=== PATIENT | male | born 1955 | race Caucasian/White ===

== ENCOUNTER → 2024-08-30 07:51 | Outpatient (BNVA) | payer MEDICARE, SELFPAY | PROVIDERS: PCP Family Medicine; Referring Provider Family Medicine; Visit Provider Podiatrist | DX: L60.0 Ingrowing nail (principal); M79.672 Pain in left foot; B35.1 Tinea unguium | CPT/HCPCS: 11720 ==

== ENCOUNTER 2024-11-29 14:01 | Emergency (ER) | payer MEDICARE, SELFPAY ==
[2024-11-29 14:04] VITALS: BP 136/76; PULSE 90; RESP 20; TEMP 37.3; O2SAT 98
[2024-11-29] MEDS: Acetaminophen 500 MG TAB 1000 MG PO (14:48)
[2024-11-29 14:52] VITALS: BP 136/76; PULSE 90; RESP 20; TEMP 37.3; O2SAT 98
[2024-11-29 14:53] VITALS: RESP 16
[2024-11-29 14:59] LABS: COVID-19 PCR Negative (Negative); RSV PCR Negative (Negative)
--- NOTE | 2024-11-29 17:40 | W.ED.GENAD ---
Discharge Plan Disposition Patient Disposition: Home Condition: Stable Discharge Details Clinical Impression: Fever, Acute viral syndrome Primary Care Provider: Hector Caruso ED Provider: Ilene Murray Home Meds and New Rx's Prescriptions: No Action sertraline 50 mg tablet 50 mg PO DAILY triamterene-hydrochlorothiazid 37.5-25 mg tablet 0.5 tab PO DAILY ketoconazole 2 % cream See Rx Instructions topical DAILY Qty: 30 11RF Rx Instructions: 1 gram topically daily; Apply total of 1gram to all toenails daily. Apply separately from the Urea cream. Discharge Instructions Additional Instructions: I suspect symptoms are due to onset of virus flu/covid/rsv testing are negative today please continue to treat symptoms with motrin & tylenol make sure you are drinking lots of water follow up as needed Discharge Data Discharge Date/Time-TO BE ENTERED AT DEPARTURE: 11/29/24 16:07 HPI General Date/Time Provider Initiated Documentation: 11/29/24 14:12. Limitations to Documentation: no limitations. Information obtained by: patient. HPI Narrative: 69-year-old gentleman with past medical history of depression, chronic fatigue syndrome presents for evaluation of chills fever body aches. He reports onset of symptoms around 10:00 this morning and have been constant all day. reports that he felt warm, but she did not check her temperature. He has had not had any vomiting, chest pain or shortness of breath, denies any cough or abdominal pain. Reports that he had similar symptoms when he was diagnosed with COVID before. He reports that all day yesterday he was out on the boat driving around Related Data Home Medications ?Medication ?Instructions ?Recorded ?Confirmed sertraline 50 mg tablet 50 mg PO DAILY 08/28/24 11/29/24 ketoconazole 2 % topical cream See Rx Instructions topical DAILY 08/30/24 11/29/24 #30 grams triamterene 37.5 0.5 tab PO DAILY 08/30/24 11/29/24 mg-hydrochlorothiazide 25 mg tablet Previous Rx's ?Medication ?Instructions ?Recorded ketoconazole 2 % topical cream See Rx Instructions topical DAILY 08/30/24 #30 grams Allergies Allergy/AdvReac Type Severity Reaction Status Date / Time No Known Allergies Allergy Verified 11/29/24 14:04 General Stated Complaint: GenMedical IONA: 3 Exam Narrative Exam Narrative: Review of Systems: All systems reviewed & are unremarkable except as noted in HPI and below Well-developed, no acute distress Elevated temperature NCAT PERRL, normal conjunctiva Bilateral TMs unremarkable No oral lesions, no oropharynx erythema or edema RRR no murmur Unlabored respiratory effort clear bilaterally Nondistended abdomen soft nontender Sunburn face Course Vital Signs Vital signs: Vital Signs Temperature 37.3 C 11/29/24 14:04 Pulse 90 11/29/24 14:04 Respiratory Rate 20 11/29/24 14:04 Blood Pressure 136/76 11/29/24 14:04 Pulse Oximetry 98 11/29/24 14:04 Temperature 37.3 C 11/29/24 14:52 Temperature Source Oral 11/29/24 14:04 Pulse 90 11/29/24 14:52 Respiratory Rate 16 11/29/24 14:53 Respiratory Effort Normal 11/29/24 14:53 Respiratory Depth Normal 11/29/24 14:53 Respiratory Pattern Normal 11/29/24 14:53 Blood Pressure 136/76 11/29/24 14:52 Blood Pressure Position Sitting 11/29/24 14:04 Pulse Oximetry 98 11/29/24 14:52 Oxygen Delivery Method Room Air 11/29/24 14:04 Oxygen Flow Rate 0 11/29/24 14:04 Pain Level 0 11/29/24 14:52 Lab/Test Results Lab/Test Results: Laboratory Tests Range/Units 11/29/24 14:08 COVID-19 Source Nasopharynx SARS-CoV-2 (PCR) (Negative) Negative Influenza Type A (PCR) (Negative) Negative Influenza Type B (PCR) (Negative) Negative RSV (PCR) (Negative) Negative Medical Decision Making Emergent evaluation of fatigue, fever and chills. Symptoms seem most consistent with a viral illness. He does not have any specific symptoms and has a benign and reassuring examination other than his elevated temperature. He was provided Tylenol for this. He was encouraged to drink fluids. Viral testing was obtained and this was negative. After defervescent's, his symptoms resolved, recommend continued treatment at home with Motrin and Tylenol lots of fluids return for reevaluation as needed. PFSH All Active Problems (Updated 11/29/24 @ 15:56 by Ilene Murray MD) Acute viral syndrome (Acute) Fever (Acute) Onychomycosis (Acute) Pain in left foot (Acute) Ingrown toenail (Acute) Insomnia (Acute) Hypertension (Chronic) Hyperlipidemia (Acute) Hyperglycemia (Acute) Myelopathy (Acute) Depression (Chronic) CFS (chronic fatigue syndrome) (Acute) Atelectasis (Acute) Medical History History of sepsis Injury of conjunctiva H/O fibromyositis Social History Smoking/Tobacco Use Status: Former Tobacco Use Smoking risk assessment performed?: Yes Drug use: Current Sobriety Current gender identity: male
== END 2024-11-29 16:07 | disposition home or self-care (01) ==
PROVIDERS: Student in an Organized Health Care Education/Training Program; Emergency Provider Emergency Medicine; PCP Family Medicine
DX: R50.9 Fever, unspecified (principal); B34.9 Viral infection, unspecified
CPT/HCPCS: 99283; 99282; 87637

== ENCOUNTER → 2025-01-09 14:25 | Outpatient (BNVA) | payer MEDICARE, SELFPAY | PROVIDERS: PCP Family Medicine; Referring Provider Family Medicine; Visit Provider Podiatrist | DX: L60.0 Ingrowing nail (principal); M79.672 Pain in left foot; B35.1 Tinea unguium | CPT/HCPCS: 99213 ==